=== PATIENT | male | born 1975 | race Caucasian/White ===

== ENCOUNTER 2020-04-14 23:10 | Inpatient (IN) | payer OTHER ==
[~2020-04-14] VITALS: Ht 172.7 cm; Wt 105.7 kg
[~2020-04-14 23:10] MED LIST: CYCLOBENZAPRINE10 MG PO; NABUMETONE 500500 M1 PO; TRAMADOL 50 MG50 MG PO
[2020-04-14 23:52] VITALS: BP 146/99
[2020-04-15] VITALS (9 sets, daily range): BP systolic 123–175; BP diastolic 84–113
[2020-04-15] MEDS ORDERED: BENICAR40 MG PO (00:53)
[2020-04-15] MEDS ORDERED: BYSTOLIC10 MG (00:54)
[2020-04-15] MEDS ORDERED: BUPROPION XL300 MG PO (00:55)
--- NOTE | 2020-04-15 01:34 | NUR ---
PT DIRECTLY ADMITS FROM [facility] MIDNIGHT WITH ELEVATED TROPONIN, DENIES CHEST PAIN OR SOB, RESTING IN BED COMFORTABLY DURING ASSESSMENTS, NO ACUTE DISTRESS NOTED, ADMISSION ASSEESSMENT CHARTED, SR ON THE MONITOR, EKG OBTAINED, VSS, NO CONCERNS AT THIS TIME, WILL CONTINUE TO MONITOR
[2020-04-15 01:48] LABS: CHOLESTEROL 154 mg/dL (<200); HDL CHOLESTEROL 28 mg/dL (>40); LDL CHOLESTEROL 85 mg/dL (<100); TC:HDL 5.5 Ratio (Not establshd); TRIGLYCERIDE 209 mg/dL (<150); TROPONIN-I 0.24 ng/mL (<0.06); VLDL 42 mg/dL (<40)
[2020-04-15 02:09] LABS: SERUM ASSESSMENT Clear
--- NOTE | 2020-04-15 08:44 | EKG ---
[facility] [place] [address] ELECTROCARDIOGRAM REPORT Name: SHILPA MOCTEZUMA Room #: 208-P ADM IN M.R.#: [id number] Admission: 04/14/20 Attend Phys: Omi Marie MD Discharge: Date of : 77 Report #: [id number] THIS REPORT FOR: cc: Ema Espinoza Beth RNP Lundgren, Craig H. MD [facility] THIS REPORT FOR: //name// [facility] Test Date: 2020-04-15 Test Time: 01:27:43 Pat Name: SHILPA MOCTEZUMA Department: Room: 208 P Gender: M Floor Coverer: [id number] : 1975 Requested By: Faye Lynn Order Number: [id number] MD: Vito Ch Measurements Intervals [place] Rate: 58 P: 12 DC: 119 QRS: -27 QRSD: 127 T: 156 QT: 505 QTc: 497 Interpretive Statements Sinus rhythm LVH with repolarization abnormality Possible ventricular preexcitation No previous ECG available for comparison Electronically Signed On 04-15-2020 8:44:46 CDT by Vito Ch [email or web address] <ELECTRONICALLY SIGNED> By: Vito Ch MD, FACC 04/15/20 0844 0127 0127 Vito Ch MD, [facility] /EPI
[2020-04-15 10:37] LABS: HEMATOCRIT 44.4 % (42.0-52.0); HEMOGLOBIN 14.8 gm/dL (14.0-18.0); MCH 30.3 pg (26.0-34.0); MCHC 33.3 g/dL (28.0-37.0); MCV 90.8 fL (80.0-100.0); RBC 4.89 mil/uL (4.50-6.00); RDW 14.2 % (10.5-14.5); WBC 10.5 thou/uL (4.0-11.0)
[2020-04-15 10:45] LABS: CALCIUM 8.5 mg/dL (8.5-10.1); MAGNESIUM 2.3 mg/dL (1.8-2.4); POTASSIUM 4.4 mmol/L (3.5-5.1)
--- NOTE | 2020-04-15 13:35 | NUR ---
AAOX4. DENIES CP, SOA. SR PER TELE. BP 157/111. ELEVATED TROPONINS NOTED. CARDIAC CATH TODAY.
--- NOTE | 2020-04-15 16:59 | NUR ---
BACK FROM SUPPLY CLERK NOW, REPORT FROM TAY MCCLAIN. VSS. RIGHT GROIN SITE SOFT, NONTENDER, CDI.
[2020-04-16] VITALS: BP 156/113
[2020-04-16 00:06] LABS: GLYCOHEMOGLOBIN (HGB A1C) 5.7 % (4.8-5.6)
[2020-04-16 03:30] VITALS: BP 149/79
[2020-04-16 04:00] VITALS: BP 149/79
--- NOTE | 2020-04-16 04:48 | NUR ---
assumed pt care at around 1900, pt is awake, alert and oriented, sr on the monitor, assessments as charted, denies chest pain or sob, right groin cath site cdi, tender to touch, no hematoma present, denies having concerns, nko acute distress noted, progressing well towards discharge goals, plan is to dc home
[2020-04-16 05:41] LABS: HEMOGLOBIN 14.3 gm/dL (14.0-18.0); MCH 30.1 pg (26.0-34.0); MCHC 33.2 g/dL (28.0-37.0); MCV 90.7 fL (80.0-100.0); RBC 4.74 mil/uL (4.50-6.00); RDW 14.2 % (10.5-14.5); WBC 10.6 thou/uL (4.0-11.0)
[2020-04-16 05:53] LABS: CALCIUM 8.5 mg/dL (8.5-10.1); CREATININE 1.1 mg/dL (0.7-1.3); POTASSIUM 4.1 mmol/L (3.5-5.1)
[2020-04-16 08:00] VITALS: BP 155/79
[2020-04-16] MEDS ORDERED: LIPITOR40 MG PO (09:13)
[2020-04-16] MEDS ORDERED: ASPIRIN EC325 M1 PO (09:13)
[2020-04-16] MEDS ORDERED: NICOTINE1 EAC2 TRANSDERM (09:34)
[2020-04-16] MEDS ORDERED: NITROGLYCERIN0.4 MG SUBLING (09:34)
[2020-04-16] MEDS ORDERED: PEPCID20 MG PO (09:35)
[2020-04-16] MEDS ORDERED: PLAVIX 75 MG TA75 MG PO (09:37)
[2020-04-16] MEDS ORDERED: ASA81BEC PO (09:37)
--- NOTE | 2020-04-16 09:50 | CATHLAB ---
[facility] [place] [address] INVASIVE PROCEDURE REPORT Name: SHILPA MOCTEZUMA Room #: 208-P ADM IN M.R.#: [id number] Admission: 04/14/20 Attend Phys: Arcenio Love MD Discharge: Date of : 77 Report #: [id number] THIS REPORT FOR: cc: Ema Espinoza Beth RNP Park, Jin S. MD ~ APPROVED REPORT Study performed: 04/15/2020 15:16:08 Patient Details Patient Status: In-Patient Room #: The patient is a 44 year-old male Event Personnel Nikko Alvarado United States Attorney, Pooja Ronquillo, SARAHI ZAMORA RN, JUANUB ANDREZ CAMPOS RTR Procedures Performed Art Access - R femoral artery* Left Heart Cath w/or w/o Coronaries [id number] [facility] [address] Initial Mod Sed Same Phys/QHP Gr5y 106556 15786 Mod Sed Same Phys/QHP Ea 352321 Hemostasis w/ Mynx Indication Non-STEMI , Dyspnea, Chest pain Risk Factors Obesity, Family History, Hypercholesterolemia, Hypertension, Tobacco History () Procedure Narrative The Right Groin^ was infiltrated with 1% Lidocaine subcutaneous anesthesia. A 5 F SHEATH sheath was inserted into the RFA 5F^. Coronary angiography was performed using coronary diagnostic catheters. The right coronary system was accessed and visualized with a JR4 catheter. The left coronary system was accessed and visualized with a JL4 catheter. The left ventricle was accessed and visualized with a ANGLE PIG catheter. Left ventriculogram was performed in 30 degree projection. Intraoperative Conscious Sedation Sedation start time: 1556 Case end Time: 1630 Dose: 917 mGy [facility] [place] [address] INVASIVE PROCEDURE REPORT Name: SHILPA MOCTEZUMA Room #: 208-P [facility] IN [facility]#: [id number] Admission: 04/14/20 Attend Phys: Arcenio Love MD Discharge: Date of : 77 Report #: [id number] Contrast Type and Amount: Omnipaque 115 ml Coronary Angiography The patient's coronary anatomy is left dominant. Diagnostic Cath Left Main The left main artery is a large-caliber vessel, appears angiographically normal. LAD The LAD is a moderate to large caliber vessel, with mild disease proximally, 30%. This vessel courses anteriorly and wraps around the apex. Diagonal 1 This is a modest sized caliber vessel, supplies 2 branches. There is mild disease proximally. Diagonal 2 This is a small to moderate-sized caliber vessel, patent with no flow-limiting lesions. Circumflex The left circumflex artery is a moderate to large caliber vessel, dominant as it supplies the left PDA. There is mild to moderate disease in the midsegment, 30 to 40%. OM1 This is a small to moderate-sized caliber vessel, patent with no flow-limiting lesions. OM2 This is a moderate-sized caliber vessel, supplies several branches as it travels the lateral wall. This vessel is patent with no flow-limiting lesions. OM3 This is a small to moderate-sized caliber vessel, patent with no flow-limiting lesions. L PDA This is a small to moderate-sized caliber vessel, with a moderate stenosis proximally, 40 to 50%. Right Coronary The RCA is a small, nondominant vessel. Left Ventriculography The left ventricle is normal in size with normal contractility. The left ventricular ejection fraction is estimated to be 55-60%. Hemodynamics The aortic pressure is 147/96 mmHg with a mean of 118 mmHg. The left ventricular pressure is 147/19 mmHg with a mean of mmHg. The left ventricular end diastolic pressure is 36 mmHg. Conclusion 1. There is mild to moderate disease in the LAD, left circumflex artery and left PDA. 2. The left circumflex artery is dominant. [facility] [address] [place] [address] INVASIVE PROCEDURE REPORT Name: SHILPA MOCTEZUMA Room #: 208-P [facility] IN ..#: [id number] Admission: 04/14/20 Attend Phys: Arcenio Love MD Discharge: Date of : 77 Report #: [id number] 3. There is normal LV systolic function. 4. Recommend aggressive risk factor management. <ELECTRONICALLY SIGNED> By: Nikko Alvarado MD 04/16/20949 9 9 Nikko Alvarado MD /INF
--- NOTE | 2020-04-16 10:31 | NUR ---
RECEIVED PT'S CARE AROUND 0720; PT. RESTING WITH EYES CLOSED; EQUAL CHEST RISING; SR ON THE MONITOR; SLEEP INTERRUPTED DURING SHIFT CHANGE; R. GROIN SIDE C/D/I; NO HEMATOMA; DURING AM ASSESSMENT NO C/O PAIN; AM MEDICATIONS GIVEN; EDUCATED ABOUT D/C PROCESS ST. UNDERSTANDING; PT'S MOTHER APPROCHED NURSING STATION EXPRESSING CONCERN ABOUT PT'S BREATHING WHILE SLEEPING; EDUCATED ABOUT POSSIBLE REASONS & FOLLOW UP WITH PCP; STBhargavi HIDALGO; PER CARDIOLOGY OK FOR PT. TO BE D/C; D/C ORDERS ON PLACED; PT. NOTIFIED; EDUCATED ABOUT D/C PROCESS; ASSESSMENT CHARGED; FOLLOWED POC; WORKING ON D/C PROCESS;
[2020-04-16 10:39] VITALS: BP 155/79
[2020-04-16 10:42] VITALS: BP 155/79
== END 2020-04-16 11:27 | disposition home or self-care (01) | DRG 280 ==
LOC: 2N 23:10
PROVIDERS: Internal Medicine Cardiovascular Disease; Nurse Practitioner Family; ADMIT Hospitalist; ATTEND Hospitalist
PROC: B2151ZZ Fluoroscopy of Left Heart using Low Osmolar Contrast (ICD-10-PCS; principal; 2020-04-15)
PROC: 4A023N7 Measurement of Cardiac Sampling and Pressure, Left Heart, Percutaneous Approach (ICD-10-PCS; principal; 2020-04-15)
PROC: B2111ZZ Fluoroscopy of Multiple Coronary Arteries using Low Osmolar Contrast (ICD-10-PCS; principal; 2020-04-15)
DX: I21.4 Non-ST elevation (NSTEMI) myocardial infarction (principal); I50.31 Acute diastolic (congestive) heart failure; G47.33 Obstructive sleep apnea (adult) (pediatric); E78.5 Hyperlipidemia, unspecified; J45.909 Unspecified asthma, uncomplicated; K21.9 Gastro-esophageal reflux disease without esophagitis; F32.9 Major depressive disorder, single episode, unspecified; F41.9 Anxiety disorder, unspecified; F12.90 Cannabis use, unspecified, uncomplicated; I45.6 Pre-excitation syndrome; I25.10 Atherosclerotic heart disease of native coronary artery without angina pectoris; I16.0 Hypertensive urgency; Z82.49 Family history of ischemic heart disease and other diseases of the circulatory system; Z83.3 Family history of diabetes mellitus; Z71.6 Tobacco abuse counseling; Z79.82 Long term (current) use of aspirin; Z79.899 Other long term (current) drug therapy; Z91.19 Patient's noncompliance with other medical treatment and regimen; Z68.35 Body mass index [BMI] 35.0-35.9, adult; I11.0 Hypertensive heart disease with heart failure
CPT/HCPCS: 10081

== ENCOUNTER → 2020-05-18 | Outpatient (CLI) | payer OTHER ==
[~2020-05-18] MED LIST changes: +ASA81BEC PO; +ASPIRIN EC325 M1 PO; +BENICAR40 MG PO; +BUPROPION XL300 MG PO; +BYSTOLIC10 MG; +LIPITOR40 MG PO; +NICOTINE1 EAC2 TRANSDERM; +NITROGLYCERIN0.4 MG SUBLING; +PEPCID20 MG PO; +PLAVIX 75 MG TA75 MG PO
== END ==
LOC: SJCVCIMAG 12:03
PROVIDERS: ATTEND Internal Medicine Cardiovascular Disease
DX: I08.1 Rheumatic disorders of both mitral and tricuspid valves (principal); I11.9 Hypertensive heart disease without heart failure; I25.10 Atherosclerotic heart disease of native coronary artery without angina pectoris; I25.2 Old myocardial infarction; Z87.891 Personal history of nicotine dependence

== ENCOUNTER → 2020-06-09 | Outpatient (CLI) | payer OTHER | LOC: LAB 10:51 | PROVIDERS: ATTEND Internal Medicine Cardiovascular Disease | DX: Z01.812 Encounter for preprocedural laboratory examination (principal); Z20.828 Contact with and (suspected) exposure to other viral communicable diseases ==

== ENCOUNTER 2020-06-14 06:26 | Observation (INO) | payer OTHER ==
[2020-06-14] VITALS (13 sets, daily range): BP systolic 112–145; BP diastolic 71–98
[~2020-06-14] VITALS: Ht 172.7 cm; Wt 116.1 kg
--- NOTE | ~2020-06-14 | P ---
[facility] [place] [address] PROCEDURE REPORT Name: SHILPA MOCTEZUMA Room #: 210-P [facility] Mitch Rea#: [id number] Admission: 06/14/20 Attend Phys: Zaen Jones MD Discharge: 06/15/20 Date of : 77 Report #: [id number] THIS REPORT FOR: cc: Frantz Jeffries,Zane Helm MD ~ DATE OF SERVICE: 06/14/2020 PROCEDURE: SVT ablation PREOPERATIVE DIAGNOSIS: Tpann-Grqnhbkqg-Cluxd syndrome POSTOPERATIVE DIAGNOSIS: Tmpvl-Ieqtlgjfq-Bgrxa syndrome HISTORY: The patient is a 45-year-old, recently admitted with palpitations, positive troponin and normal coronary angiogram, who was noted to have manifest preexcitation on his EKG. 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 ANESTHESIA: The patient underwent MAC anesthesia with no anesthesia related complications. DESCRIPTION OF PROCEDURE: The patient underwent informed consent. We discussed the details of the procedure including the risks, which include but not limited to bleeding, infection, vascular damage, cardiac perforation, and pneumothorax. He understood these risks and is willing to proceed. The patient was brought to the EP laboratory in fasting nonsedated state, prepped and draped in sterile fashion. I obtained access of the right femoral vein x 3, placing a 6 and 7-Dutch short sheath in the left femoral vein and placed two 6-Dutch short sheaths. Under fluoroscopy, I placed 3 quadripolar catheters at the HRA, HIS and RV positions and a decapolar catheter within the CS for left atrial pacing and recording. Next, basic EP study was performed. The patient was in sinus rhythm with a sinus cycle length of 793 milliseconds, IL interval 130 milliseconds, QRS duration 119 milliseconds with some mild preexcitation noted. His QT interval was 440 milliseconds, AH interval was 94 milliseconds, HV interval was 48 milliseconds. Next, I started by pacing the ventricle and it appeared that there was a fusion of the signals around CS9-10, but this appeared to be not much earlier than the earliest atrial signal at the HIS catheter. Therefore, everything appeared to be midline. Next, I paced the atrium and with maximal preexcitation, there was a left bundle branch block pattern in V1. It was demonstrating positive QRS complexes in V2 through V6. QRSs were negative in leads II, aVF and positive in leads I and aVL. Based on algorithms, this was suggestive of possible right-sided pathway. Atrial burst [facility] [address] [place] [address] PROCEDURE REPORT Name: SHILPA MOCTEZUMA Room #: 210-[facility] M.R.#: [id number] Admission: 06/14/20 Attend Phys: Zane Jones MD Discharge: 06/15/20 Date of : 77 Report #: [id number] pacing was performed and AV block was noted at 320 milliseconds. This appeared to be at the level of the accessory pathway. Next, extra single atrial extrastimuli were delivered and accessory pathway ERP was noted at 320 milliseconds at a [address] cycle length. Next, RV pacing was performed and VA block was noted at 420 milliseconds. Next, isoproterenol was initiated at 2 mcg per minute and atrial burst pacing was performed and accessory pathway block was noted at 270 milliseconds. I never saw conduction via the AV node. Atrial ERP was noted at 240 milliseconds at a [address] cycle length. Next, ventricular pacing was performed and VA block was reached at 290 milliseconds, then a long-short initiated by lack of ventricular capture, which resulted in ventricular fibrillation, which underwent a 200 joule synchronized cardioversion with nondenominational of sinus rhythm. During this episode, there was evidence of VA dissociation even at the onset. Based on our findings, the patient appeared to have an accessory pathway with rapid antegrade conducting properties that could potentially result in sudden cardiac . Therefore, we decided to proceed with ablation. Next, I placed a 4-mm ablation catheter into the right atrium and started mapping while pacing the ventricle, looking for the earliest A. It appeared that the earliest A was closest to the coronary sinus ostium. When I came off pacing and I placed my catheter into the coronary sinus in sinus rhythm, there appeared to be essentially fusion of the atrial and ventricular signal at this spot, and it appeared with catheter manipulation, I was bumped terminating the pathway. Therefore, I started ablating and I was approximately 8 mm inside the coronary sinus ostium. As expected using the 4 mm did not allow me to deliver much power. I would ablate, the pathway would disappear, but it would return quickly thereafter. Therefore, I performed multiple ablation lesions, but these did not result in persistent termination of the pathway. Therefore, I exchanged for a MonstrousToEGEN ThermoCool ablation catheter. Again, I performed multiple ablation lesions where I had terminated the pathway previously and at one point, the pathway went away for approximately 1 minute, but then returned. Therefore, I went in slightly deeper and found a signal that was interesting along the roof region of the coronary sinus. Ablation at this site resulted in termination of the pathway within 7 seconds and there was no return of the pathway for a period of over 30 minutes. Next, isoproterenol infusion was initiated again and AV block was noted at 490 milliseconds. AV solis ERP is noted at 390 milliseconds at a [address] cycle length. There was no evidence of return of the pathway. We tested for approximately 30 minutes and could not induce any SVT. Post-ablation, the patient remained in sinus rhythm with sinus cycle length of 570 milliseconds, IL interval 210 milliseconds, QRS duration 90 milliseconds, QT interval 330 milliseconds, AH interval 135 milliseconds, HV interval 50 milliseconds. As such, the procedure was concluded. The patient's catheters and sheaths were pulled and hemostasis was obtained. The patient awoke neurologically and hemodynamically intact. No complications. No significant bleeding. [facility] [address] [place] [address] PROCEDURE REPORT Name: SHILPA MOCTEZUMA NATE Room #: [address] [place] [address] M.R.#: [id number] Admission: 06/14/20 Attend Phys: Zane Jones MD Discharge: 06/15/20 Date of : 77 Report #: [id number] IMPRESSION: 1. Successful ablation of an accessory pathway located along the roof aspect of the coronary sinus, approximately 8-10 mm within the CS. 2. Normal SA solis function. 3. Normal AV solis function. 4. Normal His-Purkinje function. 5. No other inducible arrhythmias on or off isoproterenol. By: [id number] Zane Jones MD /nt
[2020-06-14] MEDS ORDERED: VITAMIN C60 MG PO (07:40)
[2020-06-14] MEDS ORDERED: UNICOMPLEX M TA1 TA1 PO (07:42)
[2020-06-14 07:44] LABS: ABSOLUTE NEUTROPHILS 5.1 thou/uL (1.4-8.2); BASOPHILS 0.8 % (0.0-2.0); EOSINOPHILS 4.1 % (0.0-3.0); HEMATOCRIT 44.9 % (42.0-52.0); HEMOGLOBIN 15.1 gm/dL (14.0-18.0); LYMPHOCYTES 29.3 % (24.0-44.0); MCH 30.4 pg (26.0-34.0); MCHC 33.7 g/dL (28.0-37.0); MCV 90.2 fL (80.0-100.0); MONOCYTES 9.3 % (1.0-8.0); PLATELET COUNT 355 thou/uL (150-400); POLYS 56.5 % (36.0-66.0); RBC 4.98 mil/uL (4.50-6.00); RDW 13.6 % (10.5-14.5)
[2020-06-14 07:51] LABS: CALCIUM 9.7 mg/dL (8.5-10.1); CREATININE 1.1 mg/dL (0.7-1.3); POTASSIUM 3.6 mmol/L (3.5-5.1)
[2020-06-14 07:56] LABS: APTT 29.9 Seconds (24.5-32.8); PROTIME 10.3 Seconds (9.3-11.4)
[2020-06-14 07:58] LABS: ALBUMIN 4.1 g/dL (3.4-5.0); TOTAL BILIRUBIN 0.4 mg/dL (0.2-1.0); TOTAL PROTEIN 7.6 g/dL (6.4-8.2)
--- NOTE | 2020-06-14 18:45 | NUR ---
ARRIVED FROM CATH LB VIA, ALERT AND ORIENTED X4, VSS, ADMISION COMPLETED. C/O CP 5-7 MEDICATED NEEDED, DANTUA GRION SITE IS INTACT AND WILL CONTINUE WITH POC.
[2020-06-15 00:17] VITALS: BP 131/79
[2020-06-15 05:08] VITALS: BP 187/91
--- NOTE | 2020-06-15 06:21 | NUR ---
BILATERAL GROIN C/D/I.NO HEMATOMA NOTED.COMPLAIN OF CHEST PRESSURE.TORADOL GIVEN.VERBALIZED RELIEF.BP ELEVATED.BP MEDS GIVEN ORDERED.MONITOR SHOWS SR.POC CONTINUED.
[2020-06-15 08:00] VITALS: BP 137/82
[2020-06-15 09:10] VITALS: BP 137/82
--- NOTE | 2020-06-15 10:10 | NUR ---
ASSUMED CARE AT SHIFT CHANGE, BL GRION SITES D/C/I AND NO HEMATOMA NOTED. DISCHARGE AND MEDICATION INSTRUCTIONS GIVEN TO PATIENT.
== END 2020-06-15 10:27 | disposition home or self-care (01) ==
LOC: CATH 06:26 → 2N 13:28
PROVIDERS: ADMIT Internal Medicine Cardiovascular Disease; ATTEND Internal Medicine Cardiovascular Disease
DX: I45.6 Pre-excitation syndrome (principal); I10 Essential (primary) hypertension; E66.9 Obesity, unspecified; G47.33 Obstructive sleep apnea (adult) (pediatric); F17.200 Nicotine dependence, unspecified, uncomplicated; Z68.38 Body mass index [BMI] 38.0-38.9, adult; Z79.899 Other long term (current) drug therapy
CPT/HCPCS: 62110; 62900; 70005

== ENCOUNTER 2020-06-15 23:40 | Inpatient (IN) | payer OTHER ==
[~2020-06-15] VITALS: Ht 172.7 cm; Wt 112.8 kg
[~2020-06-15 23:40] MED LIST changes: +UNICOMPLEX M TA1 TA1 PO; +VITAMIN C60 MG PO
[2020-06-15 23:46] VITALS: BP 127/84
[2020-06-16] VITALS (8 sets, daily range): BP systolic 112–176; BP diastolic 67–99
[2020-06-16 00:24] LABS: ABSOLUTE NEUTROPHILS 10.3 thou/uL (1.4-8.2); BASOPHILS 0.4 % (0.0-2.0); EOSINOPHILS 1.4 % (0.0-3.0); HEMOGLOBIN 14.7 gm/dL (14.0-18.0); LYMPHOCYTES 10.6 % (24.0-44.0); MCH 30.4 pg (26.0-34.0); MCHC 34.3 g/dL (28.0-37.0); MCV 88.8 fL (80.0-100.0); MONOCYTES 10.3 % (1.0-8.0); PLATELET COUNT 320 thou/uL (150-400); POLYS 77.3 % (36.0-66.0); RBC 4.84 mil/uL (4.50-6.00); RDW 13.7 % (10.5-14.5); WBC 13.3 thou/uL (4.0-11.0)
[2020-06-16 00:29] LABS: CALCIUM 9.2 mg/dL (8.5-10.1)
[2020-06-16 00:39] LABS: ALBUMIN 3.8 g/dL (3.4-5.0); TOTAL BILIRUBIN 0.5 mg/dL (0.2-1.0); TOTAL PROTEIN 7.5 g/dL (6.4-8.2)
--- NOTE | 2020-06-16 01:15 | NUR ---
PT EDUCATED ABOUT MAKING SURE MONITORS ARE CONNECTED
[2020-06-16 07:53] LABS: HEMATOCRIT 42.4 % (42.0-52.0); HEMOGLOBIN 14.3 gm/dL (14.0-18.0); MCH 30.2 pg (26.0-34.0); MCHC 33.9 g/dL (28.0-37.0); MCV 89.3 fL (80.0-100.0); RBC 4.74 mil/uL (4.50-6.00); RDW 13.7 % (10.5-14.5); WBC 15.7 thou/uL (4.0-11.0)
[2020-06-16 08:35] LABS: CHOLESTEROL 105 mg/dL (<200); HDL CHOLESTEROL 37 mg/dL (>40); LDL CHOLESTEROL 54 mg/dL (<100); TC:HDL 2.8 Ratio (Not establshd); TRIGLYCERIDE 71 mg/dL (<150); VLDL 14 mg/dL (<40)
--- NOTE | 2020-06-16 11:18 | 2DMMODE ---
[address] [address] 2 D/M-MODE ECHOCARDIOGRAM Name: SHILPA MOCTEZUMA Room #: 160-1 ADM IN M.R.#: [id number] Admission: 06/16/20 Attend Phys: Izabel Duncan Edwina Discharge: Date of : 77 Report #: [id number] THIS REPORT FOR: cc: Frantz Jeffries Steven F. DO Park, Jin S. MD ~ APPROVED REPORT Study performed: 06/16/2020 09:18:57 EXAM: Comprehensive 2D, Doppler, and color-flow Echocardiogram Patient Location: ER Status: stat BSA: 2.25 HR: 97 bpm Rhythm: NSR Other Information Study Quality: Adequate Indications Chest Pain Left Ventricle The left ventricle is normal size. There is hypokinesis in the inferior wall. Left ventricular systolic function is mildly decreased. LVEF is 45%. Right Ventricle The right ventricle is normal size. The right ventricular systolic function is normal. Atria The left atrium size is normal. The right atrium size is normal. Aortic Valve The aortic valve is normal in structure. No aortic regurgitation is present. There is no aortic valvular stenosis. Mitral Valve The mitral valve is normal in structure. There is no mitral valve [address] [address] 2 D/M-MODE ECHOCARDIOGRAM Name: SHILPA MOCTEZUMA Room #: 160-1 ADM IN M.R.#: [id number] Admission: 06/16/20 Attend Phys: Izabel Dakota Sebastian Discharge: Date of : 77 Report #: [id number] regurgitation noted. No evidence of mitral valve stenosis. Tricuspid Valve The tricuspid valve is normal in structure. There is no tricuspid valve regurgitation noted. Pulmonic Valve Pulmonic valve is not well visualized. Great Vessels The aortic root is normal in size. The inferior vena cava is not well visualized. Pericardium There is no pericardial effusion. <Conclusion> The left ventricle is normal size. Left ventricular systolic function is mildly decreased. There is hypokinesis in the inferior wall. The right ventricle is normal size. The left atrium size is normal. The aortic valve is normal in structure. There is no mitral valve regurgitation noted. <ELECTRONICALLY SIGNED> By: Nikko Alvarado MD 06/16/20 1118 1118 17 Nikko Alvarado MD /INF
--- NOTE | 2020-06-16 14:12 | CATHLAB ---
[facility] [address] [place] [address] INVASIVE PROCEDURE REPORT Name: SHILPA MOCTEZUMA Room #: 160-1 ADM IN M.R.#: [id number] Admission: 06/16/20 Attend Phys: Izabel Duncan Jazkev Discharge: Date of : 77 Report #: [id number] THIS REPORT FOR: cc: Frantz Jeffries Steven F. DO Park, Jin S. MD ~ APPROVED REPORT Study performed: 06/16/2020 09:24:25 Patient Details The patient is a 45 year-old male Event Personnel Nikko Alvarado Digital Producer, Jayson Payan RN, Miley Chappell RTR, KHAI Scrub, Pooja Ronquillo Monitor, Andres Phelps RTR Groundskeeper Porter, Lidia Shirley RN painter rough Performed Art Access - R femoral artery* Left Heart Cath w/or w/o Coronaries [id number] [facility] [address] Place w/wo Plasty Single OM 380806 86340 Initial Mod Sed Same Phys/QHP Gr5y 025928 86448 Mod Sed Same Phys/QHP Ea 152743 [facility] Place w/wo Plasty Addl BR OM 1 C9601 DESADDL Indication Non-STEMI , Dyspnea, Chest pain Risk Factors Obesity, Hypercholesterolemia, Coronary Artery DiseaseHypertension Previous Procedures/Diagnoses Previous [place] Procedure Narrative The Right Groin^ was infiltrated with 1% Lidocaine subcutaneous anesthesia. A PINNACLE 6FR Sheath #[id number] sheath was inserted into the RFA^. Coronary angiography was performed using coronary diagnostic catheters. The right coronary system was accessed and visualized with a JR4 catheter. The left coronary system was accessed and visualized with a JL4 catheter. The left ventricle was accessed and visualized with a ANGLE PIG catheter. SUTTURED SHEATH IN TO PULL MANUALY. [facility] [place] [address] INVASIVE PROCEDURE REPORT Name: SHILPA MOCTEZUMA [place] Room #: 160-[facility] IN ..#: [id number] Admission: 06/16/20 Attend Phys: Izabel Sebastian Discharge: Date of : 77 Report #: [id number] Intraoperative Conscious Sedation Sedation start time: 09 Case end Time: 1100 Fentanyl 100 mcg Versed 2 mg Fluoro Time: 3710.00 minutes Dose: DAP 26690.00 cGycm2 3710 mGy Contrast Type and Amount: Omnipaque 395 ml Coronary Angiography The patient's coronary anatomy is left dominant. Diagnostic Cath Left Main Left main artery is a large-caliber vessel, patent with no flow-limiting lesions. LAD The LAD is a moderate-sized caliber vessel, traverses the anterior wall and wraps around the apex. There is mild diffuse disease in the midsegment, 20%. Diagonal 1 This is a moderate-sized caliber vessel with mild disease proximally. Diagonal 2 This is a small to moderate-sized caliber vessel, patent with no flow-limiting lesions. Circumflex Left circumflex artery is a dominant vessel, with a total occlusion in the distal segment. OM1 This is a small to moderate-sized caliber vessel, patent with no flow-limiting lesions. OM2 This is a moderate-sized caliber vessel, supplies several branches as it travels the lateral wall. This vessel is patent. Right Coronary This is a small, nondominant vessel. Left Ventriculography The left ventricle is normal in size with Abnormal contractility. The left ventricular ejection fraction is estimated to be 45%. Left ventricular wall motion abnormalities are present. There is hypokinesis of the mid to basal inferior segment. Hemodynamics The aortic pressure is 125/88 mmHg with a mean of 105 mmHg. The left ventricular pressure is 140/17 mmHg with a mean of mmHg. The left ventricular end diastolic pressure is 26 mmHg. PCI Technique Lesion Percutaneous coronary intervention was performed on the Distal left circumflex artery.. The lesion stenosis prior to intervention was [facility] [address] [place] [address] INVASIVE PROCEDURE REPORT Name: SHILPA MOCTEZUMA Room #: 160-1 [facility] IN M.R.#: [id number] Admission: 06/16/20 Attend Phys: Izabel Sebastian Discharge: Date of : 77 Report #: [id number] 100% with STEPHEN 0 flow. A T2 SystemsTA 6FR XB 3.5 #[id number] Guide Catheter was used to engage the ostium. A Luge Wire .014 x 182CM #[id number] Interventional Guidewire was used to cross the lesion. BALLOON DILATION A Balloon catheter TREK RX 2.5 X 12 #[id number] was inserted and inflated up to 8.00atm for 15seconds. Additional Inflation: 6.00atm for 14seconds. ADDITIONAL VACUUM EXTRACTOR OPERATOR W/MNI TREK 2X15MM FOR 7 INFLATION: 8atm F 15 SEC, 8 MARCE FOR 25 SEC, 6 MARCE FOR 25 SEC, 6 MARCE FOR 22 SEC, 8 MARCE FOR 19 SEC, 10 MARCE FOR 11 SEC, 16 MARCE FOR 12 SEC. STENT DEPLOYMENT A stent RESOLUTE JOSLYN RX 2.25 X 22 #[id number] was inserted and inflated up to 12.00atm for 27seconds. Additional Inflation: 18.00atm for 12seconds. PLACED RESOLUTE JOSLYN PROX. TO FIRST STENT. 18 MARCE FOR 21 SEC. POST STENT DEPLOYMENT BALLOON DILATION NO POST DILITATION FOR STENTS. Final angiography reveals 0 % stenosis with STEPHEN 3 flow. Conclusion 1. Successful insertion of drug-eluting stents into the total occlusion in a dominant distal left circumflex artery segment. 2. There is mild disease in the LAD and first diagonal artery. 3. There is mild to moderate segmental LV dysfunction. 4. Recommend dual antiplatelet therapy and aggressive risk factor management. <ELECTRONICALLY SIGNED> By: Nikko Alvarado MD 06/16/201411 11 11 Nikko Alvarado MD /INF
--- NOTE | 2020-06-16 18:54 | NUR ---
PT CARE ASSUMED AT 0700. ASSESSMENTS CHARTED. MEDICATIONS CHARTED. LFA IV. LT HEART CATH; RT GROIN; NO CLOSURE DEVICE; 1325 HEMOSTASIS; Q6 HR BEDREST, OVER AT 1925. CPAP AT NOC. 2 LPM WHILE SLEEPING IF NOT ON CPAP.
[2020-06-16 22:06] LABS: GLYCOHEMOGLOBIN (HGB A1C) 5.8 % (4.8-5.6)
[2020-06-17] VITALS (9 sets, daily range): BP systolic 109–165; BP diastolic 59–75
[2020-06-17 05:01] LABS: HEMATOCRIT 41.6 % (42.0-52.0); HEMOGLOBIN 13.6 gm/dL (14.0-18.0); MCH 29.7 pg (26.0-34.0); MCHC 32.7 g/dL (28.0-37.0); MCV 90.7 fL (80.0-100.0); RBC 4.59 mil/uL (4.50-6.00); RDW 13.5 % (10.5-14.5)
[2020-06-17 05:04] LABS: ALBUMIN 3.2 g/dL (3.4-5.0); CALCIUM 8.8 mg/dL (8.5-10.1); CREATININE 0.9 mg/dL (0.7-1.3); TOTAL BILIRUBIN 0.8 mg/dL (0.2-1.0); TOTAL PROTEIN 7.2 g/dL (6.4-8.2)
[2020-06-17 05:22] LABS: TROPONIN-I 25.72 ng/mL (<0.06)
--- NOTE | 2020-06-17 06:21 | NUR ---
ASSUMED PATIENT CARE AT 1845. VITAL SIGNS MOSTLY STABLE WITH PATIENT EXHIBITING A PERSISTENT FEVER. FULLY ORIENTED, PATIENT IS ABLE TO PARTICIPATE IN CARE AND CALL APPROPRIATELY FOR NEEDS. NO COMPLAINTS OF CHEST/CARDIAC PAIN THROUGHOUT SHIFT. GROIN SITE CLEAN, DRY, AND INTACT. UP AD EDDIE THROUGHOUT SHIFT INCIDENT FREE. CONTINUE PLAN OF CARE.
--- NOTE | 2020-06-17 07:25 | EKG ---
[place] [address] [facility] [place] [address] ELECTROCARDIOGRAM REPORT Name: SHILPA MOCTEZUMA Room #: 214-P ADM IN M.R.#: [id number] Admission: 06/16/20 Attend Phys: Izabel Sanabria Discharge: Date of : 77 Report #: [id number] [facility] ED Test Date: 2020-06-15 Test Time: 23:49:44 Pat Name: SHILPA MOCTEZUMA Department: Room: 214 P Gender: M Feeder Catcher Tobacco: [facility] : 1975 Requested By: Jean Marie Cross Order Number: [id number] MD: Vito Ch Measurements Intervals [place] Rate: 94 P: 22 MN: 166 QRS: -19 QRSD: 109 T: 101 QT: 370 QTc: 463 Interpretive Statements Sinus rhythm LVH with secondary repolarization abnormality Probable inferior infarct, recent Compared to ECG 04/15/2020 01:27:43 Myocardial infarct finding now present Electronically Signed On 06-17-2020 7:25:06 SALES ENGINEER ACCOUNT MANAGER by Vito Ch [email or web address] <ELECTRONICALLY SIGNED> By: Vito Ch MD, [facility] 06/17/20 0725 D: [id number] Vito Ch MD, FACC /EPI
--- NOTE | 2020-06-17 07:32 | EKG ---
[place] [address] [address] [facility] [place] [address] ELECTROCARDIOGRAM REPORT Name: SHILPA MOCTEZUMA Room #: 214-P ADM IN M.R.#: [id number] Admission: 06/16/20 Attend Phys: Izabel Sanabria Discharge: Date of : 77 Report #: [id number] [facility] Test Date: 2020-06-17 Test Time: 06:59:17 Pat Name: SHILPA MOCTEZUMA Department: Room: 214 P Gender: M Sexual Abuse Counsellor: SUZAN : 1975 Requested By: Nikko Alvarado Order Number: [id number] MD: Vito Ch Measurements Intervals [place] Rate: 78 P: 25 UT: 162 QRS: -32 QRSD: 113 T: 120 QT: 379 QTc: 432 Interpretive Statements Sinus rhythm Inferior infarct, recent Compared to ECG 06/15/2020 23:49:44 Intraventricular conduction delay now present Myocardial infarct finding still present Electronically Signed On 06-17-2020 7:32:02 ADJUNCT ENGLISH INSTRUCTOR by Vito Ch [email or web address] <ELECTRONICALLY SIGNED> By: Vito Ch MD, [facility] 06/17/20 [id number] Vito Ch MD, FACC /EPI
[2020-06-17] MEDS ORDERED: EFFIENT10 MG PO (07:58)
--- NOTE | 2020-06-17 19:36 | NUR ---
PT CARE ASSUMED AT 0700. ASSESSMENTS CHARTED. MEDICATIONS CHARTED. LFA IV. SINUS RHYTHM. UP AD EDDIE. CPAP AT [facility], PT'S OWN. LT HEART CATH 06/16, LT CIRCUM, RT GROIN, NO CLOSURE DEVICE. STILL HAVING MILD FEVERS. TRAMADOL FOR BACK PAIN.
[2020-06-18 03:01] LABS: URINE BILIRUBIN NEGATIVE (Negative); URINE BLOOD NEGATIVE (Negative); URINE CLARITY CLEAR; URINE COLOR YELLOW; URINE GLUCOSE-RANDOM* NEGATIVE (Negative); URINE KETONES NEGATIVE (Negative); URINE LEUKOCYTES NEGATIVE (Negative); URINE NITRITE NEGATIVE (Negative); URINE PROTEIN (DIPSTICK) TRACE (Negative); URINE UROBILINOGEN >= 8.0 E.U./dl (0.2-1.0)
[2020-06-18 03:55] LABS: HEMATOCRIT 38.1 % (42.0-52.0); HEMOGLOBIN 12.5 gm/dL (14.0-18.0); MCH 29.9 pg (26.0-34.0); MCV 90.7 fL (80.0-100.0); RBC 4.2 mil/uL (4.50-6.00); RDW 13.8 % (10.5-14.5); WBC 16.9 thou/uL (4.0-11.0)
[2020-06-18 04:00] VITALS: BP 104/65
[2020-06-18 04:09] LABS: CALCIUM 8.9 mg/dL (8.5-10.1); CREATININE 1.1 mg/dL (0.7-1.3); MAGNESIUM 2.1 mg/dL (1.8-2.4); PHOSPHORUS 3.3 mg/dL (2.6-4.7)
--- NOTE | 2020-06-18 05:18 | NUR ---
ASSUMED PATIENT CARE AT 1845. NO COMPLAINTS OF PAIN OR NAUSEA. PATIENT HAS HAD PERSISTENT FEVER THROUGHOUT SHIFT WHICH HAS BEEN TREATED MULTIPLE TIMES WITH MEDICATIONS TO MIXED AFFECT. FULLY ORIENTED, PATIENT IS ABLE TO CALL APPROPRIATELY FOR NEEDS AND PARTICIPATE IN CARE. UP AD EDDIE THROUGHOUT SHIFT WITHOUT INCIDENT, PATIENT APPEARS STRONG AND BALANCED WHEN AMBULATING. NO COMPLAINTS OF CHEST PAIN WITH PATIENT SOLIDLY SINUS RHYTHM TO SINUS BRADYCARDIA ON THE MONITOR. PATIENT IS ANXIOUS FOR POTENTIAL DISCHARGE TODAY. CONTINUE PLAN OF CARE.
[2020-06-18 08:00] VITALS: BP 129/83
[2020-06-18 12:00] VITALS: BP 101/57
--- NOTE | 2020-06-18 14:06 | EKG ---
[place] [address] [facility] [place] [address] ELECTROCARDIOGRAM REPORT Name: SHILPA MOCTEZUMA Room #: 214-P ADM IN M.R.#: [id number] Admission: 06/16/20 Attend Phys: Izabel Sanabria Discharge: Date of : 77 Report #: [id number] [facility] Test Date: 2020-06-18 Test Time: 12:53:10 Pat Name: SHILPA MOCTEZUMA Department: Room: 214 P Gender: M Deputy County Counsel: bob : 1975 Requested By: Zane Jones Order Number: [id number] MD: Zane Jones Measurements Intervals [place] Rate: 70 P: 22 [place]: 170 QRS: -19 QRSD: 115 T: 84 QT: 393 QTc: 425 Interpretive Statements Sinus rhythm LVH with IVCD and secondary repol abnrm Probable inferior infarct,resolving and improved. Compared to ECG 06/17/2020 06:59:17 Intraventricular conduction delay now present Left ventricular hypertrophy now present Early repolarization now present Myocardial infarct finding still present Electronically Signed On 06-18-2020 14:06:33 APPAREL EMBROIDERY DIGITIZER by Zane Jones [email or web address] <ELECTRONICALLY SIGNED> By: Zane Jones MD 06/18/20 1406 [id number] Zane Jones MD /EPI
--- NOTE | 2020-06-18 16:14 | NUR ---
PT IS ALERT AND ORIENTED. PT IS UP AD EDDIE TO TOILET. PT WAS AFEBRILE, BUT BEING TREATED FOR INFECTION WITH ABX. PT COMPLAINED OF MILD DISCOMFORT AT L FOREARM IV SITE. PT STATED IV SITE "HAD WATER COME OUT, AND THEN IT STOPPED HURTING." IV SITE ASSESSED, NO SIGNS OF INFILTRATION OR PHLEBITIS. PT ALSO COMPLAINED OF MODERATE HEADACHE. TEMPERATURE CHECKED, BUT PT WAS AFEBRILE. AFTER RX, PT STATED PAIN WAS REDUCED. DR PACK AND DR STILL CONSULTED. PT ANXIOUS TO DISCHARGE. MOTHER AT BEDSIDE.
[2020-06-18 19:30] VITALS: BP 137/80
[2020-06-19 04:18] LABS: HEMATOCRIT 37.3 % (42.0-52.0); HEMOGLOBIN 12.4 gm/dL (14.0-18.0); MCH 30.1 pg (26.0-34.0); MCHC 33.2 g/dL (28.0-37.0); MCV 90.6 fL (80.0-100.0); RBC 4.12 mil/uL (4.50-6.00); RDW 13.8 % (10.5-14.5); WBC 12.8 thou/uL (4.0-11.0)
--- NOTE | 2020-06-19 04:18 | NUR ---
VSS-AFEBRILE. ACHY AND LOW GRADE FEVER OVERNIGHT OF 99.5. TRAMADOL AND TYLENOL PROVIDED SOME RELIEF, AND WAS ABLE TO SLEEP SPORADICALLY. LUNGS CLEAR-ROOM AIR. CALLS APPROPRIATELY FOR ANY NEEDED ASSISTANCE. NO C/O CHEST PAIN OR DISCOMFORT.
[2020-06-19 04:20] VITALS: BP 142/83
[2020-06-19 07:00] VITALS: BP 151/90
[2020-06-19 10:42] VITALS: BP 151/90
--- NOTE | 2020-06-19 10:50 | NUR ---
PT IS A&OX4. PT AFEBRILE THIS AM. DENIES PAIN. PT MOTHER AT THE BEDSIDE. DISCHARGE EDUCATION INCLUDES NEW MEDICATION EFFIENT. STOP MEDICATION PLAVIX. PT STATES UNDERSTANDING. NO CONCERNS AT THIS TIME. PT DISCHARGED WITH MOTHER TO HOME IN PERSONAL VEHICLE.
== END 2020-06-19 11:05 | disposition home or self-care (01) | DRG 246 ==
LOC: ER 23:40 → 2N 06-16 06:00 → EROBS 06-16 06:00 → TBACV 06-16 11:15 → 2N 06-16 15:36
PROVIDERS: Emergency Medicine; Internal Medicine Cardiovascular Disease; Nurse Practitioner Family; ADMIT Hospitalist; ATTEND Hospitalist
PROC: B2111ZZ Fluoroscopy of Multiple Coronary Arteries using Low Osmolar Contrast (ICD-10-PCS; principal; 2020-06-16)
PROC: 4A023N7 Measurement of Cardiac Sampling and Pressure, Left Heart, Percutaneous Approach (ICD-10-PCS; principal; 2020-06-16)
PROC: 027035Z Dilation of Coronary Artery, One Artery with Two Drug-eluting Intraluminal Devices, Percutaneous Approach (ICD-10-PCS; principal; 2020-06-16)
PROC: B2151ZZ Fluoroscopy of Left Heart using Low Osmolar Contrast (ICD-10-PCS; principal; 2020-06-16)
DX: I21.4 Non-ST elevation (NSTEMI) myocardial infarction (principal); R65.11 Systemic inflammatory response syndrome (SIRS) of non-infectious origin with acute organ dysfunction; I31.9 Disease of pericardium, unspecified; I47.1 Supraventricular tachycardia; I24.1 Dressler's syndrome; I45.6 Pre-excitation syndrome; E66.9 Obesity, unspecified; G47.33 Obstructive sleep apnea (adult) (pediatric); I10 Essential (primary) hypertension; F17.210 Nicotine dependence, cigarettes, uncomplicated; E78.5 Hyperlipidemia, unspecified; Z79.82 Long term (current) use of aspirin; Z79.899 Other long term (current) drug therapy; Z79.01 Long term (current) use of anticoagulants; Z68.37 Body mass index [BMI] 37.0-37.9, adult
CPT/HCPCS: 10081